=== PATIENT | female | born 1995 | race Caucasian/White ===

== ENCOUNTER → 2020-01-22 | Day surgery (SDC) | payer BC, OTHER ==
[~2020-01-22] VITALS: Ht 167.6 cm; Wt 61.2 kg
[~2020-01-22] MED LIST: NORCO 5-325 TA1 EAC1 PO
[2020-01-22 12:49] LABS: HEMATOCRIT 45.3 % (37.0-47.0); HEMOGLOBIN 15.5 gm/dL (12.0-15.0)
[2020-01-22 12:53] VITALS: BP 120/74
[2020-01-22 14:02] VITALS: BP 120/74
--- NOTE | 2020-01-25 14:07 | PATH ---
[facility] [place] [address] PATHOLOGY RPT PROCEDURE Name: MONIQUE MARIN Room #: REG [facility].#: [id number] Admission: 01/22/20 Date of : 89 Discharge: Report #: [id number] Path Case #: [id number] [facility] Accession Number: [id number] . 01 Material submitted: . breast - RIGHT BREAST MASS. Modifiers: right . 01 Clinical history: . Fibroadenosis. . 02 Diagnosis: Breast, right breast mass, excision: - Fibroadenoma, 1.8 cm in greatest dimension. - Negative for atypia or malignancy. - At inked margin focally. (IUV:peter; 01/25/2020) QMS 01/25/2020 1235 Local . 02 Electronically signed: . Sydni Lucas MD, Pathologist NPI- [id number] . 01 Gross description: . Received in formalin labeled "Monique Marin, right breast mass" is an unoriented portion of yellow-berumen fibroadipose tissue measuring 2.4 x 2.0 x 1.3 cm, and weighing 2 g. The margin is inked black. The specimen is sectioned to reveal a berumen-white fibrotic nodule measuring 1.8 x 1.5 x 1.0 cm. A biopsy site is not grossly identified. The scant uninvolved tissue is yellow and lobulated. The specimen is submitted entirely in cassettes A1-A2. The specimen is removed from the patient and placed in formalin at 1333 on 01/22/2020. The specimen is removed from formalin at 1850 on 01/24/2020. ([facility]; 01/24/2020) [facility] 01/24/2020 1108 Local . 02 Pathologist provided ICD-10: D24.1 . 02 CPT . 352586 Specimen Comment: A courtesy copy of this report has been sent to [phone] Specimen Comment: Report sent to / DR ODEN Performed at: [address] [id number] MD Marco Harris MD Phone: [phone] Performed at: [address] [address] PATHOLOGY RPT PROCEDURE Name: MONIQUE MARIN Room #: REG [facility] M.R.#: [id number] Admission: 01/22/20 Date of : [birth year] Discharge: Report #: [id number] Path Case #: [id number] [address], [place] [id number] MD Sydni Lucas MD Phone: [phone]
--- NOTE | 2020-01-27 15:34 | O ---
[facility] [place] [address] OPERATIVE REPORT Name: MONIQUE YOUNG Room #: REG [facility].#: [id number] Admission: 01/22/20 Attend Phys: Devante Jon MD Discharge: Date of : [birth year] Report #: [id number] THIS REPORT FOR: cc: Triny Keller MD, Holly B. MD Chu, Peter Y. MD ~ CC: Triny Lopez MD DATE OF SERVICE: 01/23/2020 PREOPERATIVE DIAGNOSIS: Right breast mass, likely fibroadenoma. POSTOPERATIVE DIAGNOSIS: Right breast mass, likely fibroadenoma. PROCEDURE PERFORMED: Excision of right breast mass. ANESTHESIA: General. SURGEON: Devante Jon MD. COMPLICATIONS: None. ESTIMATED BLOOD LOSS: 2 mL. DESCRIPTION OF PROCEDURE NOTE: The patient is under general anesthesia at her choice. The right breast was prepped and draped in sterile fashion. Timeout was performed. IV antibiotic was also administered. A 0.25% Marcaine was used to anesthetize the skin over the mass. The mass is palpable. A little about 1.5 cm incision was made over the mass and after incising through the skin and subcutaneous tissue, dissecting into the subcutaneous fat, I was able to see the mass. The mass was picked up with a small pickup with teeth. The mass was then able to be delivered out of the skin after dissecting the surrounding tissue, which was essentially subcutaneous tissue from the more anterior aspect of the mass. The posterior aspect of the mass was more embedded within the fibrous breast tissue and part of the fibrous breast tissue was also removed along the edge of the mass. The mass has appearance of fibroadenoma. The mass is removed and sent to pathology. Irrigation was performed, hemostasis obtained. Subcutaneous tissue was closed with 4-0 PDS. Skin was closed with 5-0 PDS running subcuticular fashion. Steri-Strips, 4 x 4's, OpSite used for dressing. The patient tolerated the procedure well. <ELECTRONICALLY SIGNED> By: Devante Jon MD 01/27/20 1534 1546 [id number] Devante Jon MD /nt
--- NOTE | 2020-01-27 15:34 | H ---
[facility] [place] [address] HISTORY AND PHYSICAL Name: MONIQUE YOUNG Room #: REG [facility]..#: [id number] Admission: 01/22/20 Attend Phys: Devante Jon MD Discharge: Date of : 89 Report #: [id number] THIS REPORT FOR: cc: Triny Keller MD, Holly B. MD Chu, Peter Y. MD ~ CC: Triny Lopez MD PREOPERATIVE DIAGNOSIS: Right breast mass, probable fibroadenoma. The patient is here for excisional biopsy. HISTORY OF PRESENT ILLNESS: The patient is a 24-year-old who noticed a lump in her breast. She noticed it in October. She thinks it may have gotten little bit smaller. The patient did change from oral control to IUD in July. She thinks maybe that has something to do with it, freely mobile. It is more of a discrete nodule now. No skin changes. No discharge. No prior history of lumps in her breast. Interestingly, her brother had breast discharge/ and nipple was bigger on that side. He did have to have surgery. The patient did have an ultrasound and mammogram. There is a hypoechoic mass at 11:30 4 cm from the nipple. This is a probable fibroadenoma, but did have a lobulated appearance. The patient is here to have this excised because of the slightly atypical shape to it and that it is palpable. She does not want to have a core biopsy or mammotome biopsy. PAST MEDICAL HISTORY: She is healthy. No heart disease, lung disease, diabetes. MEDICATIONS: The Mirena IUD. PAST SURGICAL HISTORY: Medora tooth removal. ALLERGIES: SHE IS ALLERGIC TO SULFA. MEDICATIONS: Zithromax. FAMILY HISTORY: High blood pressure. Narcolepsy in mother. SOCIAL HISTORY: She is a certified nursing assistant instructor. Does not smoke. She has a 4-6 drinks a week. REVIEW OF SYSTEMS: She has a near sightedness and far sightedness and astigmatism in the right eye. No shortness of breath, chest pain, or palpitation. PHYSICAL EXAMINATION: [facility] [address] [address] HISTORY AND PHYSICAL Name: MONIQUE YOUNG Room #: REG [facility].#: [id number] Admission: 01/22/20 Attend Phys: Devante Jon MD Discharge: Date of : 89 Report #: [id number] GENERAL: The patient is alert and oriented. LUNGS: Clear. HEART: Regular rate and rhythm. No murmur or gallop. NECK: Soft and supple, no masses. Axilla is unremarkable. ABDOMEN: Soft, nondistended, nontender. The patient does have a palpable nodule in the right breast that is consistent with a fibroadenoma. No skin changes around it. It is fairly superficial. The patient does have dense breast consistent with fibrocystic disease and also her young age. EXTREMITIES: No cyanosis, clubbing or edema. IMPRESSION: The patient with a right breast mass, probably a fibroadenoma. It did have a lobulated appearance. The radiologist was concerned because of that. Exam is consistent with fibroadenoma. The patient is about 1 cm in width. I think the best approach is we would probably go ahead and remove it with a small incision. A core needle or mammogram I do not think can remove it all and she will still have to keep watching it, and she has elected to have this removed. Risk of bleeding and infection discussed. The patient wished to proceed. <ELECTRONICALLY SIGNED> By: Devante Jon MD 01/27/20 1534 0826 [id number] Devante Jon MD /nt
== END | disposition home or self-care (01) ==
LOC: OR 09:44
PROVIDERS: Surgery
DX: D24.1 Benign neoplasm of right breast (principal); Z98.890 Other specified postprocedural states; Z79.899 Other long term (current) drug therapy; Z87.442 Personal history of urinary calculi; Z88.1 Allergy status to other antibiotic agents; Z88.2 Allergy status to sulfonamides
CPT/HCPCS: 50010; 50101; 50386; 50417; 56525; 56526; 62110; 62900; 70005